=== PATIENT | male | born 1965 | race Caucasian/White ===

== ENCOUNTER → 2017-06-15 | Outpatient (CLI) | payer OTHER ==
--- NOTE | 2017-06-15 14:01 | DIAGNOSTIC IMAGING REPORT ---
C-SPINE ROUTINE 4 OR 5 VIEWS CLINICAL HISTORY: M54.2 Cervical pain (neck) COMPARISON STUDY: No previous studies for comparison. FINDINGS: The prevertebral soft tissues are normal. No fractures or subluxations are visualized. The bony neural foramina appear patent. IMPRESSION: Unremarkable conventional radiographic evaluation of the cervical spine for age Electronically signed by: Sravan Robison M.D. 06/15/2017 2:00 PM Dictated Date/Time: 06/15/2017 2:00 PM
--- NOTE | 2017-06-15 14:02 | DIAGNOSTIC IMAGING REPORT ---
L-SPINE MIN 4 VIEWS ROUTINE CLINICAL HISTORY: M54.5 Lumbar pain COMPARISON STUDY: No previous studies for comparison. FINDINGS: No fractures or subluxations are visualized. There are minor degenerative changes present. No destructive lesions are visualized. There is equivocal SI joint fusion. IMPRESSION: 1. No fractures or subluxations identified 2. 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 Electronically signed by: Sravan Robison M.D. 06/15/2017 2:01 PM Dictated Date/Time: 06/15/2017 2:00 PM
--- NOTE | 2017-06-15 14:02 | DIAGNOSTIC IMAGING REPORT ---
THORACIC SPINE 3 VIEWS ROUTINE HISTORY: Pain M54.6 Thoracic back pain COMPARISON: None. FINDINGS: There is no fracture. No subluxation. Mild degenerative disc change throughout. Slight scoliosis. Lateral peripheral osteophytic formation of the mid to lower thoracic region. Vertebral body stature is normal throughout. 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 No acute process. The above report was generated using voice recognition software. It may contain grammatical, syntax or spelling errors. Electronically signed by: Slade Hampton M.D. 06/15/2017 2:01 PM Dictated Date/Time: 06/15/2017 1:59 PM
== END | disposition home or self-care (01) ==
LOC: C.RAD 13:10
PROVIDERS: ATTEND Family Medicine
DX: M54.6 Pain in thoracic spine (principal); M54.2 Cervicalgia; M54.5 Low back pain; M43.28 Fusion of spine, sacral and sacrococcygeal region; M25.78 Osteophyte, vertebrae

== ENCOUNTER → 2017-09-04 | Outpatient (CLI) | payer OTHER | END | disposition home or self-care (01) | LOC: C.LABMFLN 09-05 13:47 | PROVIDERS: ATTEND Family Medicine | DX: Z13.9 Encounter for screening, unspecified (principal) ==